=== PATIENT | female | born 1965 | race Caucasian/White ===

== ENCOUNTER 2023-03-28 08:25 | Outpatient (CLI) | payer BC, OTHER, SELFPAY ==
--- NOTE | ~2023-03-28 | MM_ITS ---
EXAMINATION: MM screening flower BI w kelly HISTORY: Screening mammogram TECHNIQUE: Craniocaudal and mediolateral oblique 3-D tomosynthesis images were obtained and synthetic 2-D images were generated. CAD analysis was submitted and interpreted. COMPARISON: No prior mammogram is available for comparison at this institution. BREAST PARENCHYMAL COMPOSITION: There are scattered areas of fibroglandular density. FINDINGS: There is a circumscribed approximately 3.7 x 5.4 mm mass in the upper central left breast ( MLO Tomosynthesis image 40/65 and an occult Tomosynthesis image 39/62). Diagnostic left mammogram and left breast ultrasound examination are recommended. No suspicious mass, architectural distortion, malignant calcification, skin thickening or retraction of either breast is noted otherwise. IMPRESSION: 1. 3.7 x 5.4 mm upper central left breast mass 2. Diagnostic left mammogram and left breast ultrasound examination are recommended. BI-RADS Category 0: Incomplete: Needs additional imaging evaluation. Reviewed, dictated and finalized at location A. IMPRESSION: 1. 3.7 x 5.4 mm upper central left breast mass 2. Diagnostic left mammogram and left breast ultrasound examination are recomme nded. BI-RADS Category 0: Incomplete: Needs additional imaging evaluation.
== END 2023-03-28 08:26 | disposition home or self-care (01) ==
LOC: ANHIMG 08:28
PROVIDERS: PCP Physician Assistant; Visit Provider Physician Assistant
DX: Z12.31 Encounter for screening mammogram for malignant neoplasm of breast (principal); R92.8 Other abnormal and inconclusive findings on diagnostic imaging of breast
CPT/HCPCS: 77063; 77067

== ENCOUNTER 2023-04-30 12:21 | Outpatient (CLI) | payer BC, OTHER, SELFPAY ==
--- NOTE | ~2023-04-30 | MMUS_ITS ---
EXAMINATION: MM diagnostic flower LT w kelly, US breast LT limited HISTORY: New 3.7 x 4 point pulmonary opacity in upper central left breast reported on 03/2023 screeni ng mammogram examination TECHNIQUE: Additional 3-D tomosynthesis images of the left breast were performed and synthetic 2-D im ages were generated. CAD analysis was submitted and interpreted. High resolution upper inner and uppe r outer left breast ultrasound was performed. COMPARISON: 03/2023 bilateral screening mammogram FINDINGS: MAMMOGRAPHIC FINDINGS: Approximately 5 mm upper central circumscribed low-density opacity is noted. ULTRASOUND: 11:30 o'clock 4 cm from nipple: Parallel circumscribed oval hypoechoic approximately 3 x 5 mm lesion with central fatty area, possibly a benign intramammary lymph node. No suspicious internal vascularit y or shadowing is noted. IMPRESSION: 1. Probable benign finding at 11:30 o'clock lesion 4 from nipple 2. 6 month diagnostic left mammogram and targeted left breast ultrasound follow-up are recommended BI-RADS category 3, probably benign findings. Reviewed, dictated and finalized at location A. IMPRESSION: 1. Probable benign finding at 11:30 o'clock lesion 4 from nipple 2. 6 month diagnostic left mammogram and targeted left breast ultrasound follow -up are recommended BI-RADS category 3, probably benign findings.
== END 2023-04-30 12:22 | disposition home or self-care (01) ==
PROVIDERS: PCP Physician Assistant; Visit Provider Physician Assistant
DX: R92.8 Other abnormal and inconclusive findings on diagnostic imaging of breast (principal)
CPT/HCPCS: 76642; 77061; 77065; G0279

== ENCOUNTER 2023-07-10 09:56 | Emergency (ER) | payer BC, OTHER, SELFPAY ==
[2023-07-10 10:02] VITALS: BP 138/75; PULSE 72; RESP 16; O2SAT 100
--- NOTE | 2023-07-10 10:05 | ED.EPISTAXIS ---
HPI - Epistaxis General Chief complaint: Epistaxis Stated complaint: nose bleed Time Seen by Provider: 07/10/23 09:59 History of Present Illness HPI Narrative: Patient is a 57-year-old female with history of hypertension, hypothyroidism here with epistaxis. She states it has been occurring intermittently for the last 2 weeks. Typically the nose bleed begins in the left and then progresses to involve the right side as well. She does note passages of clots. This episode began about 1 hour ago. She has been holding pressure and feels that there are some clots moving on the back of her throat at this time. She denies any trauma or nose picking. She notes that it began when she was bending over to use the sink to wash her face this morning. She is not on any blood thinners. She has not seen anyone for this over the last 2 weeks until today. No shortness of breath, lightheadedness or chest pain. Related Data Allergies Allergy/AdvReac Type Severity Reaction Status Date / Time penicillin G Allergy Unknown Verified 07/10/23 09:57 Review of Systems Review of Systems: All systems reviewed & are unremarkable except as noted in HPI and below Exam Narrative: GENERAL: Well-appearing, well-nourished, and in no acute distress. HEAD: Normocephalic, atraumatic. EYES: PERRLA and EOMI. ENT: Mucous membranes moist. NECK: Supple. CHEST: Clear to auscultation. No respiratory distress. HEART: Regular rate and rhythm. Normal peripheral pulses. ABDOMEN: Soft, nontender, nondistended. EXTREMITIES: Normal range of motion. No edema. SKIN: Warm, dry, no rash. NEURO: No focal deficits. Alert and oriented x3. PSYCH: Normal mood and affect. Course Course Emergency Course: Chart review performed. No prior visits in our system. Patient seen evaluated, she has active epistaxis and is holding pressure on her naris. Nasal clamp provided and applied by myself. Medications with Afrin, TLE, atomized TXA ordered. Patient placed on a monitor. Basic lab work ordered. Labs reviewed, grossly normal. Initially placed Afrin, TLE, atomized TXA in bilateral nares. Pressure applied for 30 minutes. On re-evaluation she had significant improvement of any anterior bleeding however she continued to feel some bleeding down the back of her throat. Discussed risks versus benefits of nasal packing. Given continued tripping on the back of her throat she would prefer to be treated with nasal packing on this visit. 7.5 rhino rocket placed, patient tolerated well. Given antibiotic allergies will start on doxycycline. Given referral to ENT. The results of pertinent diagnostic studies and exam findings were discussed. The patient?s provisional diagnosis and plan of care were discussed with the patient and present family. The patient and/or present family expressed understanding of the diagnosis and plan. The nurse was instructed to provide written instructions and appropriate follow-up information. The patient understands their need and responsibility to obtain additional follow-up as instructed. The risks of medications administered and prescribed were discussed with the patient and family present. Vital Signs Vital signs: Vital Signs Pulse Rate 72 07/10/23 10:02 Respiratory Rate 16 07/10/23 10:02 Blood Pressure 138/75 07/10/23 10:02 Pulse Oximetry 100 07/10/23 10:02 Pulse Rate 72 07/10/23 10:02 Respiratory Rate 16 07/10/23 10:02 Blood Pressure 138/75 07/10/23 10:02 Pulse Oximetry 100 07/10/23 10:02 Procedures Epistaxis Control left: Epistaxis Control Date: 07/10/23 Epistaxis Control Time: 12:00 Nose Prepped With: lidocaine Direct Inspection: unable to visualize Clots Removed by: blowing nose Cautery Used: none Device Inserted: nasal tampon Device Size: 7 Patient Tolerated Procedure: well MDM - Epistaxis Lab Data 07/10/23 10:15 07/10/23 10:15
[2023-07-10 10:20] LABS: Basophils Percent Auto 0.4 % (0.2-1.2); Eosinophils Absolute Auto 0.2 K/mm3 (0-0.3); Eosinophils Percent Auto 1.7 % (0-4.4); Hematocrit 40.6 % (37.0-47.0); Immature Granulocyte Absolute 0.04 K/mm3 (0.00-0.031); Immature Granulocyte Percent A 0.4 % (0-0.5); Lymphocytes Absolute Auto 1.74 K/mm3 (0.9-3.2); Lymphocytes Percent Auto 19.4 % (18.3-44.2); Mean Corpuscular Hemoglobin 28.8 pg (26-34); Mean Platelet Volume 11.4 fl (7.4-10.4); Monocytes Absolute Auto 0.6 K/mm3 (0.1-0.6); Monocytes Percent Auto 6.6 % (2.6-8.5); Neutrophils Absolute Auto 6.4 K/mm3 (1.3-6.7); Neutrophils Percent Auto 71.5 % (45.5-73.1); Platelet Count Result 227 k/mm3 (150-375); Red Blood Count 4.51 M/mm3 (4.2-5.4); Red Cell Distribution Width 14.5 % (11.5-14.5)
--- NOTE | 2023-07-10 10:30 | PC.NURSE ---
Pt self removed nasal clamp due to it not working.
[2023-07-10 10:32] LABS: Anion Gap 9 mmol/L (8-16); Blood Urea Nitrogen 19 mg/dL (7-17); Calcium 9.2 mg/dL (8.4-10.2); Carbon Dioxide 23 mmol/L (22-30); Chloride 110 mmol/L (98-107); Estimated CRCL calculation 63 ml/min; Estimated Glomerular Filt Rate > 60; Glucose 104 mg/dL (65-110); Potassium 3.7 mmol/L (3.4-5.0); Sodium 142 mmol/L (137-145)
[2023-07-10] MEDS: ONDANSETRON HCL ODT 4 MG TABLET PO (12:25)
[2023-07-10] MEDS: DOXYCYCLINE HYCLATE 100 MG TABLET PO (12:25)
[2023-07-10] MEDS: HYDROcodone/acetaminophen (*CRX) 5-325 MG TABLET 1 TAB PO (12:26)
--- NOTE | 2023-07-10 12:28 | PC.NURSE ---
First dose of Zofran pt dropped on floor.
== END 2023-07-10 13:24 | disposition home or self-care (01) ==
PROVIDERS: Emergency Provider Student in an Organized Health Care Education/Training Program; PCP Physician Assistant
DX: R04.0 Epistaxis (principal); I10 Essential (primary) hypertension; E03.9 Hypothyroidism, unspecified
CPT/HCPCS: 30901; 36415; 80048; 85025; 99283; A9270

== ENCOUNTER 2024-01-27 10:52 | Outpatient (CLI) | payer BC, SELFPAY ==
--- NOTE | ~2024-01-27 | US_ITS ---
EXAMINATION: US thyroid DATE: 01/27/2024 11:58 INDICATION: Hypothyroidism TECHNIQUE: Multiple ultrasound images of the thyroid were obtained. COMPARISON: None. FINDINGS: The right thyroid lobe measures 2.4 x 0.6 x 0.6 cm. The left thyroid lobe measures 2.5 x 0.9 x 1.1 c m. There is normal echotexture and increased echogenicity throughout the thyroid gland. No discrete nodules identified. Normal vascular flow is present. IMPRESSION: Small, diffusely echogenic thyroid gland. May be secondary to changes of Graves' disease or Stacie 's thyroiditis. Reviewed, dictated and finalized at location K. IMPRESSION: Small, diffusely echogenic thyroid gland. May be secondary to changes of Graves ' disease or Stacie's thyroiditis.
== END 2024-01-27 10:53 ==
LOC: MICIMG 10:54
PROVIDERS: PCP Emergency Medicine; Visit Provider Emergency Medicine
DX: E03.9 Hypothyroidism, unspecified (principal)
CPT/HCPCS: 76536